=== PATIENT | female | born 1980 | race Caucasian/White ===

== ENCOUNTER 2019-08-16 04:50 | Inpatient (IN) | payer OTHER ==
[2019-08-13 17:22] VITALS: BMI 28.1
[2019-08-16] MEDS ORDERED: BUPIVACAINE HCL/PF 0.5% (5 MG/ML) 30 ML VIAL IJ ONE (07:59)
[2019-08-16] MEDS ORDERED: DEXAMETHASONE SOD PHOSPHATE/PF 10 MG/ML SDV ONE (07:59)
[2019-08-16] MEDS ORDERED: MIDAZOLAM HCL 2 MG/2 ML SINGLE DOSE VIAL ONE ×3 (08:00→09:08)
[2019-08-16] MEDS ORDERED: ROCURONIUM BROMIDE 50 MG/5 ML SYRINGE ONE ×2 (09:08→10:04)
[2019-08-16] MEDS ORDERED: fentaNYL CITRATE 250 MCG/5 ML VIAL ONE (09:08)
[2019-08-16] MEDS ORDERED: ceFAZolin SODIUM 1 GM VIAL IVPB ONE (09:31)
[2019-08-16] MEDS ORDERED: ONDANSETRON 4 MG/2 ML VIAL IVPUSH PRN (09:44)
[2019-08-16] MEDS ORDERED: LACTATED RINGERS SOLUTION 1,000 ML IV SCH (09:45)
[2019-08-16] MEDS ORDERED: DEXAMETHASONE SOD PHOSPHATE 4 MG/1 ML VIAL ONE (10:03)
[2019-08-16] MEDS ORDERED: PROPOFOL 20 ML ONE ×3 (10:03→12:13)
[2019-08-16] MEDS ORDERED: GLYCOPYRROLATE 0.2 MG/1 ML VIAL ONE ×3 (10:04)
[2019-08-16] MEDS ORDERED: LIDOCAINE HCL 2% JELLY (5 ML/TUBE) ONE (10:04)
[2019-08-16] MEDS ORDERED: NEOSTIGMINE METHYLSULFATE 0.5 MG/ML - 10 ML MDV ONE (10:04)
[2019-08-16] MEDS ORDERED: ceFAZolin SODIUM 1 GM VIAL ONE ×2 (10:04)
[2019-08-16] MEDS ORDERED: HYDROmorphone HCl 2 MG/ML VIAL ONE (10:42)
[2019-08-16] MEDS ORDERED: ACETAMINOPHEN 1000 MG/100 ML VIAL (NON FORMULARY) IVPB ONE (11:30)
[2019-08-16] MEDS ORDERED: LIDOCAINE HCL/PF 2% SDV 5ML VIAL ONE (11:44)
--- NOTE | 2019-08-16 12:05 | HP ---
History & Physical Update - History History: No Change - Physical Physical: No Change - Assessment Assessment: No Change - Plan Plan: No Change
--- NOTE | 2019-08-16 12:08 | OP ---
Operative Note - Note: Operative Date: 08/16/19 Pre-Operative Diagnosis: menorrhagia, pelvic pain, fibroid uterus Operation: total abdominal hysterectomy, bilateral salpingectomy via pfannensteil incision Findings: fibroid uterus, normal appearing fallopian tubes and ovaries bilaterally Post-Operative Diagnosis: Same as Pre-op Surgeon: Eden Be Medicine Aide: Yahir Bauman Anesthesiologist/BRASS MOLDER HELPER: Regine Nava Anesthesia: General Specimens Removed: uterus bilateral fallopian tubes Estimated Blood Loss (mls): 100 Drains, Volume Out (mls): 100 (urine) Fluid Volume Replaced (mls): 1,800
[2019-08-16] MEDS ORDERED: HYDROmorphone *PCA* 10MG/50ML DISP.SYRIN PCA SCH (12:15)
[2019-08-16] MEDS ORDERED: HYDROmorphone *PCA* 10MG/50ML DISP.SYRIN ONE (12:25)
--- NOTE | 2019-08-16 13:05 | OP ---
DATE OF OPERATION: 08/16/2019 ATTENDING PHYSICIAN RESPONSIBLE FOR SIGNING REPORT: Eden Be MD PREOPERATIVE DIAGNOSES: Menorrhagia, pelvic pain, fibroid uterus. POSTOPERATIVE DIAGNOSES: Menorrhagia, pelvic pain, fibroid uterus. SURGEON: Eden Be MD CONCRETE STONE FINISHER: Yahir Bauman MD ANESTHESIOLOGY: Regine Nava, REF-CRN ANESTHESIA: General. SPECIMENS REMOVED: Uterus, bilateral fallopian tubes. ESTIMATED BLOOD LOSS: 100. FLUID GIVEN: 1800. URINE OUTPUT: 100 mL at the end of the case. FINDINGS: Normal-appearing bilateral fallopian tubes and ovaries, a large fibroid uterus. INDICATIONS: The patient is a 39-year-old, 3, para 3, with history of menorrhagia, fibroid uterus, failing medical intervention, desiring definitive surgical treatment. She was counseled regarding risks, benefits, alternatives, and complications of procedure including infection, bleeding, damage to surrounding organs such as bowel, bladder or ureter. She expressed understanding. DESCRIPTION OF PROCEDURE: She was brought to the operating room. When anesthesia was found to be adequate, patient was prepped and draped in normal sterile fashion, placed in dorsal positioning. An approximately 8-cm skin incision was made with a knife and carried down to the underlying rectus fascia using Bovie electrocautery. The fascia was nicked in midline, extended laterally using the Bovie electrocautery. Inferior portion of the fascial incision was tented up using Alexandria clamps, dissected off underlying rectus muscle using Lopez scissors. Attention was brought to the superior portion of the fascial incision, where in a similar fashion it was tented up using Alexandria clamps, dissected off underlying rectus muscle using the Lopez scissors. The rectus muscles were in the midline. The peritoneum was entered sharply and the uterus was identified, exteriorized. Attention was brought to the right round ligament, which was tagged using 0 Vicryl and ligated with the LigaSure. Attention was brought to the left round ligament, which was tagged and ligated using the LigaSure. The anterior leaf of the broad ligament was entered and dissected to the level of the internal os sharply using Metzenbaum scissors. Attention was brought to the right adnexa. The right broad ligament was entered sharply and the uteroovarian ligament was doubly clamped and suture ligated using 0 Vicryl. Attention was brought to the left adnexa. The uteroovarian ligament was identified, doubly clamped, and was suture ligated using 0 Vicryl. The right fallopian tube was then removed using the LigaSure and sent to Pathology. The left uterine vessels were skeletonized. The uterine vessels were doubly clamped using Ursula clamps, sutured and ligated using 0 Vicryl. Additional pedicles were then taken down in a stepwise fashion down laterally to the cervix to the level of the external cervical os, and this was ligated using the 0 Vicryl. Attention was brought to the right uterine vessels, which were skeletonized and which were doubly clamped and suture ligated using 0 Vicryl. Additional pedicles taken down using Ursula clamps to the level of external cervical os. The vaginal cuff was then made using Lopez scissors, and the specimen was sent to Pathology. The cervical cuff was then closed using 0 Vicryl in running fashion. The left fallopian tube was ligated using the LigaSure and sent to Pathology. Examination of the pedicles revealed bleeding from the posterior peritoneum. The anterior and posterior peritoneum was then reapproximated using 0 Vicryl in a running fashion. Good hemostasis was noted. Copious irrigation was performed. The peritoneum was then closed using 0 Vicryl in a running fashion. The fascia was closed using 0 Vicryl in running fashion. The subcutaneous fat was closed using 0 Vicryl in a running fashion. The skin was reapproximated using 3-0 Vicryl. The patient tolerated the procedure well. Estimated blood loss was 100 mL. Patient was brought to recovery room in stable condition. Ashley [id number] MTDTavia
[2019-08-16] MEDS ORDERED: ACETAMINOPHEN INJECTION 100 ML IVPB ONE (13:16)
[2019-08-16] MEDS: LACTATED RINGERS SOLUTION 1,000 ML/1,000 ML INFUS.BAG IV SCH (17:00)
[2019-08-16] MEDS: CEFAZOLIN 2 GM/D5W 2 GM/50 ML ML IVPB SCH (18:59)
--- NOTE | 2019-08-16 23:18 | PN ---
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 Reports no bleeding + rocha, draining clear fluid Tolerating clears - Current Medications Current Medications: Active Medications Enoxaparin Sodium (Lovenox -) 40 mg SQ DAILY [facility] Hydromorphone HCl (Hydromorphone 10 Mg/50 Ml-Ns) 10 mg PHARMACIST APPRENTICE PHARMACIST APPRENTICE SAMANTHA; Protocol Stop: 08/23/19 12:15 Last Admin: 08/16/19 12:45 Dose: 10 mg Cefazolin Sodium/Dextrose (Ancef 2 Gm Premixed Ivpb -) 2 gm in 50 mls @ 3 mls/ hr IVPB Q8HIV [facility] Stop: 08/17/19 09:59 Last Admin: 08/16/19 18:59 Dose: 3 mls/hr Lactated Ringer's (Lactated Ringers Solution) 1,000 ml in 1,000 mls @ 125 mls/ hr IV ASDIR [facility] Last Admin: 08/16/19 17:00 Dose: 125 mls/hr Ondansetron HCl (Zofran Injection) 4 mg IVPUSH Q6H PRN PRN Reason: NAUSEA AND/OR VOMITING - Objective Vital Signs: Vital Signs Temperature 98 F 08/16/19 14:45 Pulse Rate 86 08/16/19 16:45 Respiratory Rate 18 08/16/19 16:45 Blood Pressure 107/59 L 08/16/19 16:45 O2 Sat by Pulse Oximetry (%) 100 08/16/19 16:45 Constitutional: Yes: No Distress, Calm Cardiovascular: Yes: Regular Rate and Rhythm Respiratory: Yes: Regular, CTA Bilaterally Gastrointestinal: Yes: Soft, Tenderness (mild incisoinal). No: Distention Integumentary: Yes: WNL Wound/Incision: Yes: Dressing Dry and Intact Neurological: Yes: Alert, Oriented Psychiatric: Yes: WNL Assessment/Plan 39 yo POD # 0 s/p MARCO ANTONIO, Bilateral salpingectomy via pfannensteil incision, afebrile, vital signs stable, doing well 1. Continue routine postoperative care. 2. ID - afebrile, will continue to monitor vital signs Currently on ancef Q 8 x 24 H 3. Cardiovascular - No acute issues 4. Pulmonary - Encourage incentive spirometer 5. Hematology - will f/u AM CBC Will continue to monitor vital signs of anemia 6. Urinary -Rocha in place, draining clear fluid Plan to DC in AM Will f/u BMP for Cr in AM 7. Gastroinestinal - tolerating clears, no signs of ileus at this time Encouraged ambulation in AM Plan to advance diet as tolerated 8. Gynecology - will follow up pathology 9. Anticipate discharge home POD # 2, pending able to ambulate, adequate pain control and urinating without issue.
[2019-08-17] MEDS: CEFAZOLIN 2 GM/D5W 2 GM/50 ML ML IVPB SCH (02:20)
[2019-08-17] MEDS: LACTATED RINGERS SOLUTION 1,000 ML/1,000 ML INFUS.BAG IV SCH (02:38)
--- NOTE | 2019-08-17 07:08 | PN ---
Progress Note (SOAP) - Subjective History of Present Illness: Patient reports mild pain Using LOG DECKMAN, controlling pain well Denies flatus Reports no bleeding + rocha, draining clear fluid Tolerating clears denies nausea or vomiting No ambulation yet - Current Medications Current Medications: Active Medications Enoxaparin Sodium (Lovenox -) 40 mg SQ DAILY [facility] Hydromorphone HCl (Hydromorphone 10 Mg/50 Ml-Ns) 10 mg LOG DECKMAN LOG DECKMAN SAMANTHA; Protocol Stop: 08/23/19 12:15 Last Admin: 08/16/19 12:45 Dose: 10 mg Cefazolin Sodium/Dextrose (Ancef 2 Gm Premixed Ivpb -) 2 gm in 50 mls @ 3 mls/ hr IVPB Q8HIV [facility] Stop: 08/17/19 09:59 Last Admin: 08/17/19 02:20 Dose: 3 mls/hr Lactated Ringer's (Lactated Ringers Solution) 1,000 ml in 1,000 mls @ 125 mls/ hr IV ASDIR SAMANTHA Last Admin: 08/17/19 02:38 Dose: 125 mls/hr Ondansetron HCl (Zofran Injection) 4 mg IVPUSH Q6H PRN PRN Reason: NAUSEA AND/OR VOMITING - Objective Vital Signs: Vital Signs Temperature 99.0 F 08/17/19 05:55 Pulse Rate 84 08/17/19 05:55 Respiratory Rate 20 08/17/19 05:55 Blood Pressure 109/60 08/17/19 05:55 O2 Sat by Pulse Oximetry (%) 100 08/16/19 21:00 Assessment/Plan 39 yo POD # 1 s/p MARCO ANTONIO, Bilateral salpingectomy via pfannensteil incision, afebrile, vital signs stable, doing well 1. Continue routine postoperative care. 2. ID - afebrile, will continue to monitor vital signs Currently on ancef Q 8 x 24 H 3. Cardiovascular - No acute issues 4. Pulmonary - Encourage incentive spirometer 5. Hematology - will f/u AM CBC Will continue to monitor vital signs of anemia 6. Urinary -Rocha in place, draining clear fluid Plan to DC today Will f/u BMP for Cr 7. Gastroinestinal - tolerating clears, no signs of ileus at this time Encouraged ambulation Plan to advance diet as tolerated 8. Gynecology - will follow up pathology 9. Anticipate discharge home POD # 2, pending able to ambulate, adequate pain control and urinating without issue.
[2019-08-17] MEDS ORDERED: oxyCODONE HCL 5 MG TABLET PO PRN (08:04)
[2019-08-17] MEDS ORDERED: IBUPROFEN 600 MG TABLET (FP) PO PRN (08:04)
[2019-08-17] MEDS ORDERED: ACETAMINOPHEN 325 MG TABLET (FP) PO PRN (08:04)
[2019-08-17 08:20] LABS: HEMATOCRIT 28.7 % (32.4-45.2); HEMOGLOBIN 9.7 GM/dL (10.7-15.3); MCH 28.5 pg (25.7-33.7); MCHC 33.9 g/dl (32.0-36.0); MEAN CELL VOLUME 84.1 fl (80-96); MEAN PLT VOLUME 9.3 fl (7.5-11.1); PLATELET COUNT 202 K/MM3 (134-434); RBC 3.41 M/mm3 (3.60-5.2); RDW 14.3 % (11.6-15.6); WHITE BLOOD COUNT 5.4 K/mm3 (4.0-10.0)
[2019-08-17 08:41] LABS: CALCIUM 7.8 mg/dL (8.5-10.1); CREATININE 0.7 mg/dL (0.55-1.3); POTASSIUM 4.2 mmol/L (3.5-5.1)
[2019-08-17] MEDS: oxyCODONE HCL 5 MG TABLET PO PRN ×2 (09:39→20:52)
[2019-08-17] MEDS: ENOXAPARIN NA (PORCINE) 40 MG/0.4 ML DISP.SYRIN SQ SCH (09:41)
--- NOTE | 2019-08-17 10:34 | PN ---
Progress Note (short form) - Note Progress Note: 39 F s/p MARCO ANTONIO POD 1 [employer] F[employer]ER d/c today by surgical team. pt c/o pain. taking PO meds. good result of anesthetic care cont present meds and plan
[2019-08-18] MEDS: oxyCODONE HCL 5 MG TABLET PO PRN (06:47)
[2019-08-18] MEDS: ENOXAPARIN NA (PORCINE) 40 MG/0.4 ML DISP.SYRIN SQ SCH (09:42)
--- NOTE | 2019-08-18 11:41 | PN ---
Progress Note (SOAP) - Subjective History of Present Illness: Patient comfortable, pain well controlled with PO meds Ambulating, voiding, passing gas Denies headache, chest pain, shortness of breath - Current Medications Current Medications: Active Medications Acetaminophen (Tylenol -) 650 mg PO Q6H PRN PRN Reason: FEVER Enoxaparin Sodium (Lovenox -) 40 mg SQ DAILY SAMANTHA Last Admin: 08/18/19 09:42 Dose: 40 mg Ibuprofen (Motrin -) 600 mg PO Q6H PRN PRN Reason: FEVER; IF TYLENOL NOT WRK Last Admin: 08/17/19 12:27 Dose: 600 mg Ondansetron HCl (Zofran Injection) 4 mg IVPUSH Q6H PRN PRN Reason: NAUSEA AND/OR VOMITING Oxycodone HCl (Roxicodone -) 10 mg PO Q4H PRN PRN Reason: PAIN 7-10 Last Admin: 08/18/19 06:47 Dose: 10 mg Oxycodone HCl (Roxicodone -) 5 mg PO Q4H PRN PRN Reason: PAIN 1-6 - Objective Vital Signs: Vital Signs Temperature 98.8 F 08/18/19 06:00 Pulse Rate 80 08/18/19 06:00 Respiratory Rate 18 08/18/19 03:31 Blood Pressure 99/54 L 08/18/19 06:00 O2 Sat by Pulse Oximetry (%) 97 08/17/19 21:00 Constitutional: Yes: No Distress, Calm Cardiovascular: Yes: Regular Rate and Rhythm Respiratory: Yes: Regular, CTA Bilaterally Gastrointestinal: Yes: Normal Bowel Sounds, Soft, Tenderness (mild incisional tenderness) Extremities: Yes: WNL Edema: No Wound/Incision: Yes: Clean/Dry, Well Approximated, Dressing Removed Neurological: Yes: Alert, Oriented Psychiatric: Yes: Alert, Oriented Labs Lab Results: CBC, BMP 08/17/19 06:45 08/17/19 06:45 Assessment/Plan 39 yo POD # 2 s/p MARCO ANTONIO, Bilateral salpingectomy via pfannensteil incision, afebrile, vital signs stable, doing well 1. Continue routine postoperative care. 2. ID - afebrile, no signs of infection, s/p ancef 3. Cardiovascular - No acute issues 4. Pulmonary - Encourage incentive spirometer 5. Hematology - AM CBC Stable 6. Urinary -Cr stable (preop 0.8 04/2019), voiding no issue 7. Gastroinestinal - no signs of ileus, tolerating PO wel 8. Gynecology - will follow up pathology 9. Anticipate discharge home today with precautions Rx sent to pharmacy To RTO in 1-2 wk for incision check.
--- NOTE | 2019-08-18 11:56 | DS ---
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 Signs: Vital Signs Temperature 98.8 F 08/18/19 06:00 Pulse Rate 80 08/18/19 06:00 Respiratory Rate 18 08/18/19 03:31 Blood Pressure 99/54 L 08/18/19 06:00 O2 Sat by Pulse Oximetry (%) 97 08/17/19 21:00 Labs: CBC, BMP 08/17/19 06:45 08/17/19 06:45 Discharge Summary Problems reviewed: Yes Reason For Visit: PELVIC PAIN, FIBROIDS UTERUS Current Active Problems Fibroid (Acute) Menorrhagia (Acute) Pelvic pain (Acute) S/P total abdominal hysterectomy (Acute) Procedures: Principal: Total abdominal hysterectomy, bilateral salpingectomy via pfannensteil incision Hospital Course: Patient underwent MARCO ANTONIO/Bilateral salpingectomy via Pfannensteil Incision. POD # 1 Sandy DC'd, patient progressed to regular diet, ambulated and voided without issue CBC without anemia, Adequate UOP, Cr stable Stable For DC home without issue on POD #2 with precautions Condition: Good - Instructions Diet, Activity, Other Instructions: RTO in 1 week Physical activity Resume your normal everyday activity as tolerated no heavy lifting or exercise until seen by your surgeon. You may walk unlimited lee of and climb stairs. You may resume driving the car when you feel safe and comfortable behind the wheel. No sexual activity as instructed. Wound care If you have a bandage, leave it on, and keep dry for 48-72 hours. After that time discard the outer bandage. If they are tapes on the skin under the out of bandage leave them in place. They will peel off in the next 7 to 10 days. Do Not Peel them off. You may shower the day after surgery. If there are tapes present on the skin, you may shower over them. Diet There are no dietary restrictions. Eat healthy, high-fiber foods. Drink 6 to 8 glasses of liquid each day. This will assist in keeping your bowels are regular. Pain management You may take Tylenol or acetaminophen or Ibuprofen (for example, Motrin, Advil etc.) for pain; Prescription pain medication has been sent to your pharmacy Call MD for any of the following: Severe pain not relieved by medication Fever of 101 or higher Excessive bleeding or drainage on dressing Inability to urinate Referrals: Eden Be MD [Staff Physician] - Disposition: HOME - Home Medications Comprehensive Discharge Medication List: Ambulatory Orders Oxycodone HCl/Acetaminophen [Percocet 5-325 mg Tablet] 1 tab PO Q6H #10 tablet MDD 4 08/18/19 Prescription Drug Monitoring Program (I-STOP) results: I-STOP reviewed and no issues identified (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
[2019-08-18 12:05] VITALS: BP 116/64; PULSE 90; TEMP 98
--- NOTE | 2019-08-19 16:14 | PATH ---
Surgical Pathology Report Patient Name: MARIA DE JESUS OLIVERA [facility]. Rec. #: [id number] /Age/Gender: 1980 (Age: 39) / F Account: [id number] Location: [address] [place] [address] Taken: 08/16/2019 Received: 08/16/2019 Reported: 08/18/2019 Physicians: Eden Be Specimen(s) Received TOTAL HYSTERECTOMY Clinical History Pelvic pain, fibroids uterus Final Diagnosis UTERUS, CERVIX, BILATERAL FALLOPIAN TUBES, HYSTERECTOMY AND BILATERAL SALPINGECTOMY: LEIOMYOMATA WITH FOCAL DEGENERATIVE CHANGE. WEAKLY PROLIFERATIVE ENDOMETRIUM. CERVIX WITH SQUAMOUS METAPLASIA AND FOCAL MILD CHRONIC CERVICITIS. BILATERAL FALLOPIAN TUBES WITH NO SIGNIFICANT PATHOLOGIC CHANGE. Electronically Signed Alex Mallory M.D. Gross Description Received in formalin labeled "uterus and cervix, bilateral fallopian tubes," is a 271 g uterus with an attached cervix and bilateral attached fallopian tubes. The specimen measures 11.5 cm from superior to inferior, 9 cm from anterior to posterior, and 5.5 cm from left to right. The serosa is rodriguez-pink and smooth. The attached cervix measures3 cm in length and averages 3.3 cm in diameter. The ectocervix is rodriguez-pink, smooth and glistening. The endocervix is unremarkable. The endometrial cavity measures 4.5 cm in length and averages 4.0 cm from cornu to cornu. The endometrium is rodriguez-red and measures up to 0.1 cm in thickness. The myometrium displays multiple submucosal, intramural , and subserosal nodules, measuring from 0.3 cm to 3.8 cm in greatest dimension. The cut surface of the nodules is rodriguez and rubbery with whorled architecture. The remaining myometrium is rodriguez-pink and measures up to 2.2 cm in thickness. The left fimbriated fallopian tube measures 5.0 cm in length. The outer surface is jackson purple and smooth. Sectioning reveals an unremarkable lumen. The right fimbriated fallopian tube measures 5.0 cm in length. The outer surface is jackson purple and smooth. Sectioning reveals an unremarkable lumen. Lead Software Development Engineer sections are submitted in 15 cassettes as follows: 7-7-mqhyaimk cervix; 4-1-cwznjyywq cervix; 3-5-iehifafp endomyometrium; 1-7-wqtdvdlrs endomyometrium; 1-83-wuudujc intramural nodule; 11- submucosal nodule; 12- intramural nodule 13- subserosal nodule 14- one portion of fallopian tube; 15- other portion of fallopian tube. jim/08/16/2019
== END 2019-08-18 14:38 | disposition home or self-care (01) | DRG 513 ==
LOC: JSAMEDAYSX 04:50 → J6S 14:51
PROVIDERS: ADMIT Obstetrics & Gynecology; ATTEND Obstetrics & Gynecology
PROC: 0UT70ZZ Resection of Bilateral Fallopian Tubes, Open Approach (ICD-10-PCS; 2019-08-16)
PROC: 0UT90ZZ Resection of Uterus, Open Approach (ICD-10-PCS; principal; 2019-08-16 09:00)
DX: N92.0 Excessive and frequent menstruation with regular cycle (principal); D25.9 Leiomyoma of uterus, unspecified; R10.2 Pelvic and perineal pain
CPT/HCPCS: 36415; 80048; 84702; 85027; 86850; 86900; 86901; 94010; 94760; J0131